=== PATIENT | male | born 2000 | race Hispanic/Latino ===

== ENCOUNTER 2020-10-14 06:33 | Emergency (ER) | payer OTHER ==
[2020-10-14] MEDS ORDERED: DIVALPROEX SODIUM 250 MG TABLET.DR PO ONE ×2 (07:48→07:56)
== END 2020-10-14 08:29 | disposition home or self-care (01) ==
LOC: EDH 06:33
DX: R56.9 Unspecified convulsions (principal); Z91.14 Patient's other noncompliance with medication regimen

== ENCOUNTER 2021-03-14 14:32 | Emergency (ER) | payer OTHER ==
[~2021-03-14] VITALS: Ht 170.2 cm; Wt 55.8 kg
[2021-03-14 14:35] VITALS: BP 98/57
[2021-03-14 15:12] LABS: BASOPHILS % (AUTO) 0.4 % (0.0-5.0); EOSINOPHILS % (AUTO) 4.7 % (0.0-8.0); HEMATOCRIT 39.1 % (42-54); LYMPHOCYTES % (AUTO) 22.9 % (21.0-51.0); MEAN CORPUSCULAR HEMOGLOBIN 30.2 pg (27.0-33.0); MEAN CORPUSCULAR VOLUME 88.9 fL (79-99); MONOCYTES % (AUTO) 6.1 % (3.0-13.0); NEUTROPHILS % (AUTO) 65.7 % (40.0-77.0); PLATELET COUNT (AUTO) 184 K/uL (130-400); RED CELL DISTRIBUTION WIDTH 13.1 % (11.0-15.5); WHITE BLOOD COUNT (AUTO) 5.4 K/uL (4.8-10.8)
[2021-03-14 15:24] LABS: POTASSIUM 4.3 mmol/L (3.5-5.1)
[2021-03-14 15:29] LABS: ALBUMIN 3.9 g/dL (3.5-5.0); BILIRUBIN,TOTAL 0.5 mg/dL (0.2-1.0); TOTAL PROTEIN, SERUM 7.2 g/dL (6.0-8.3)
[2021-03-14 17:19] VITALS: BP 97/55
[2021-03-14] MEDS ORDERED: LEVETIRACETAM 1,000 MG in 0.9%NACL 100ML 100 ML IV SCH (18:00)
[2021-03-14] MEDS ORDERED: VALPROATE SOD 250 MG/5 ML (PO) PO SCH (18:30)
== END 2021-03-14 20:03 | disposition home or self-care (01) ==
LOC: EDH 14:32
DX: S00.83XA Contusion of other part of head, initial encounter (principal); G40.909 Epilepsy, unspecified, not intractable, without status epilepticus; W18.39XA Other fall on same level, initial encounter; Y93.89 Activity, other specified; Y92.89 Other specified places as the place of occurrence of the external cause; Y99.8 Other external cause status
CPT/HCPCS: 36415; 70450; 80053; 80177; 85025; 96365; J1953